=== PATIENT | female | born 1955 | race Caucasian/White ===

== ENCOUNTER 2019-03-02 09:39 | Day surgery (SDC) | payer OTHER ==
[~2019-03-02] VITALS: Ht 161.3 cm; Wt 83.3 kg
[~2019-03-02 09:39] MED LIST: ACET650T85; EXEDRINE
[2019-03-02 11:09] VITALS: Ht 161.3 cm; Wt 83.3 kg
[2019-03-02 11:13] VITALS: BP 153/72; PULSE 64; RESP 16
[2019-03-02] MEDS ORDERED: CEFAZOLIN 2 GM/50 ML (PMX) 50 ML IVPB ONE (12:00)
[2019-03-02] MEDS ORDERED: SOD CHLORIDE 0.9% 1,000 ML IV SCH (12:00)
[2019-03-02] MEDS ORDERED: LIDOCAINE 1%/EPI (1:100,000) (MDV) 20 ML INJ ONE ×2 (12:45→13:30)
[2019-03-02] MEDS ORDERED: BUPIVACAINE 0.25% (MPF) 30 ML INJ INJ ONE (12:45)
--- NOTE | 2019-03-02 12:52 | HPN ---
Date/Time of Note Date/Time of Note DATE: 03/02/19 TIME: 12:52 Interval H&P Admission Note Pt. seen H&P reviewed: No system changes JESÚS REEVES MD Mar 02, 2019 12:52
--- NOTE | 2019-03-02 12:54 | PREAC ---
Date/Time of Note Date/Time of Note DATE: 03/02/19 TIME: 12:52 Anesthesia Eval and Record Evaluation Time Pre-Procedure Interview DATE: 03/02/19 TIME: 12:52 Age 63 Sex female NPO: 8 hrs Preoperative diagnosis L. Thigh Mass Planned procedure Excision of Mass Past Medical History Past Medical History: Includes Recreational drugs: Other (R. Breast Cancer) Surgery & Anesthesia Issues No known issue Meds Anticoagulation: No Beta Zev within 24 hr: No Reason Beta Zev not given: Pt. not on B-Zev Discontinued Reported Medications [Exedrine] No Conflict Check, 500 MG 05/04/16 Acetaminophen (Tylenol 8 Hour) 650 Mg Tablet.sa 10/14/11 Current Medications Sodium Chloride 1,000 ml @ 75 mls/hr [id number] IV Last administered on 03/02/19at 11:14; Admin Dose 75 MLS/HR; Start 03/02/19 at 12:00; Stop 03/03/19 at 01:19 Meds reviewed: Yes Allergies Coded Allergies: No Known Drug Allergy (Verified Allergy, Mild, 05/04/16) Allergies Reviewed: Yes Labs/Studies Labs Reviewed: Reviewed by anesthesiologist test: N/A Pre-procedure Exam Last vitals Vital Signs Date Temp Pulse Resp B/P (MAP) Pulse Ox O2 O2 Flow FiO2 Time Delivery Rate 03/02/19 97.4 64 16 153/72 98 Room Air 11:13 (99) Airway: Adequate mouth opening Mallampati: Mallampati II Teeth: Normal Lung: Normal Heart: Normal ASA Physical Status ASA physical status: 2 Emergency: None Planned Anesthetic General/MAC: MAC Pre-operative Attestations Prior to commencing anesthesia and surgery, the patient was re-evaluated, there was verification of: *The patient's identity *The results of appropriate recent lab work and preoperative vital signs *The above evaluation not changing prior to induction *Anesthetic plan, risk benefits, alternative and complications discussed with patient/family; questions answered; patient/family understands, accepts and wishes to proceed. ALLAN PARRISH MD Mar 02, 2019 12:54
[2019-03-02] MEDS ORDERED: CEFAZOLIN 1 GM INJ ONE (12:56)
[2019-03-02] MEDS ORDERED: PROPOFOL 20 ML ONE (12:56)
[2019-03-02] MEDS ORDERED: FENTAnyl 50 MCG/ML VIAL ONE (12:56)
[2019-03-02] MEDS ORDERED: ONDANSETRON 4 MG INJ ONE (12:57)
[2019-03-02] MEDS ORDERED: KETOROLAC 30 MG INJ ONE (12:57)
[2019-03-02] MEDS ORDERED: MIDAZOLAM 1 MG/ML 2 ML INJ ONE (12:57)
[2019-03-02] MEDS ORDERED: BUPIVACAINE 0.25% (MPF) 30 ML INJ ONE (12:58)
[2019-03-02] MEDS ORDERED: LIDOCAINE 1%/EPI (1:100,000) (MDV) 20 ML ONE (13:23)
[2019-03-02] MEDS ORDERED: ONDANSETRON 4 MG INJ IV PRN (13:30)
[2019-03-02] MEDS ORDERED: OXYCODONE/ACETAMINOPHEN (5/325) TAB PO PRN (13:30)
[2019-03-02] MEDS ORDERED: HYDROmorphONE 1 MG/5 ML IV SYRINGE IV PRN (13:30)
[2019-03-02] MEDS ORDERED: FENTAnyl 50 MCG/ML VIAL IV PRN (13:30)
[2019-03-02] MEDS ORDERED: LIDOCAINE 1%/EPI 30 ML INJ INJ ONE (13:30)
[2019-03-02 13:57] VITALS: BP 126/66; PULSE 65; RESP 16
[2019-03-02] MEDS ORDERED: KETOROLAC 30 MG INJ IV PRN (14:00)
[2019-03-02] MEDS ORDERED: IBUPROFEN 600 MG TAB PO PRN ×2 (14:00)
--- NOTE | 2019-03-02 14:01 | PAC ---
Date/Time of Note Date/Time of Note DATE: 03/02/19 TIME: 14:01 Post-Anesthesia Notes Post-Anesthesia Note Last documented vital signs Vital Signs Date Temp Pulse Resp B/P (MAP) Pulse Ox O2 O2 Flow FiO2 Time Delivery Rate 03/02/19 97.4 64 16 153/72 98 Room Air 11:13 (99) Activity: WNL Respiratory function: WNL Cardiovascular function: WNL Mental status: Baseline Pain reasonably controlled: Yes Hydration appropriate: Yes Nausea/Vomiting absent: Yes ALLAN PARRISH MD Mar 02, 2019 14:01
--- NOTE | 2019-03-02 14:01 | OPR ---
Date/Time of Note Date/Time of Note DATE: 03/02/19 TIME: 13:56 Operative Report Procedure Date: Mar 02, 2019 Preoperative Diagnosis Recurrent left posterior thigh mass Postoperative Diagnosis Recurrent left posterior thigh mass Operation/Procedure Performed 1. Excision recurrent left posterior thigh mass, 3 cm 2. Creation of local advancement flaps Surgeon see signature line Orthotic And Prosthetic Technician None Anesthesia Type: MAC Anesthesiologist: ALLAN PARRISH MD Estimated Blood Loss: minimal Transfusion none Specimen Recurrent left posterior thigh mass Grafts/Implants none Complications none Pt Condition Post Procedure: stable Disposition: PACU Indications Patient is a 63-year-old female who underwent a excision of the posterior left thigh mass by another surgeon approximately 2 years ago who presented to the office with a recurrent mass of her left posterior thigh. She reported growth and discomfort. The patient was scheduled for elective excision for symptom relief and definitive pathological diagnosis. All risks and benefits of the procedure including, but not limited to: Wound infection, excessive bleeding, postoperative seroma/hematoma formation, mass recurrence, etc. were all explained to the patient in full detail. The patient fully understood and wi shed to proceed with the procedure. Informed consent was obtained. Procedure Description Patient was brought to the operating room placed on the operating table in the right lateral decubitus position with the left side up. The recurrent mass in the left posterior thigh was preoperatively marked and confirmed with the patient in the holding area. Bilateral sequential compression devices were placed on both lower extremities. A dose of broad-spectrum perioperative intravenous antibiotics was given. After achieving adequate sedation, 1% lidocaine with epinephrine local anesthesia was injected in a radial fashion around the area of the mass creating a field block. An elliptical incision was then made around the mass using a 15 blade scalpel encompassing the patient's prior incision. Incision was carried down through the skin and subcutaneous tissues using Bovie electrocautery. A lipomatous neoplasm was identified in the subcutaneous tissues. It was dissected free of surrounding tissues, transected at its base and passed off the field as specimen. It measured approximately 3 cm in maximal dimension. Circumferential local advancement flaps were then created to aid in tension-free closure. Hemostasis was then inspected for and noted to be total. The wound cavity was then irrigated and the irrigant returned clear. 0.25% Marcaine was then injected around the incision. Incision was then closed in layers using interrupted 3-0 Vicryl sutures for the dermal layer. Skin was reapproximated using a running subcuticular 4-0 Monocryl suture. The incision was cleaned and Dermabond was applied. The patient was then transferred to the recovery room in stable condition. All counts were correct at the end of the case x2. JESÚS REEVES MD Mar 02, 2019 14:01
[2019-03-02 14:03] VITALS: BP 133/67; PULSE 60; RESP 12
[2019-03-02 14:25] VITALS: BP 135/63; PULSE 56; RESP 18
== END 2019-03-02 15:00 | disposition home or self-care (01) ==
LOC: SDS 09:39
PROVIDERS: ATTEND Surgery
DX: D17.24 Benign lipomatous neoplasm of skin and subcutaneous tissue of left leg (principal)
CPT/HCPCS: 14020; 88307; J0690; J1885; J2250; J2405; J3010; Z7512; Z7610